=== PATIENT | male | born 1985 | race American Indian/Alaskan Native ===

== ENCOUNTER 2016-11-26 19:26 | Inpatient (IN) | payer MEDICARE, OTHER ==
--- NOTE | 2016-11-26 19:48 | C.PDOC ---
History Of Present Illness 31 y/o male presents to the ED with complains of depression and SI. Pt states he wants to jump in water and kill himself. PMHx schizophrenia. Denies any physical complaints at this time. Time Seen by Provider: 11/26/16 19:48 Chief Complaint (Nursing): Psychiatric Evaluation History Per: Patient History/Exam Limitations: no limitations Onset/Duration Of Symptoms: Days Current Symptoms Are (Timing): Still Present Suicide/Self Injury Attempted (Context): None Modifying Factor(s): None Severity: Moderate Associated Symptoms: Depression, Suicidal Thoughts Involuntary Hold By: None Recent travel outside of the [place]: No Additional History Per: Patient Past Medical History Reviewed: Historical Data, Nursing Documentation, Vital Signs Vital Signs: Last Vital Signs Temp 97.5 F L 11/26/16 19:33 Pulse 70 11/26/16 19:33 Resp 14 11/26/16 19:33 BP 118/77 11/26/16 19:33 Pulse Ox 99 11/26/16 19:59 - Medical History PMH: Anxiety, Bipolar Disorder, Depression, Schizophrenia - [facility] Procedures GROUP PSYCHOTHERAPY (05/06/16) INDIVIDUAL PSYCHOTHERAPY, SUPPORTIVE (06/10/16) MEDICATION MANAGEMENT (05/06/16) Family History: States: Unknown Family Hx - Social History Hx Alcohol Use: No Hx Substance Use: No - Immunization History Hx Tetanus Toxoid Vaccination: No Hx Influenza Vaccination: No Hx Pneumococcal Vaccination: No Review Of Systems Constitutional: Negative for: Fever Eyes: Negative for: Redness Cardiovascular: Negative for: Chest Pain Respiratory: Negative for: Shortness of Breath Gastrointestinal: Negative for: Vomiting Genitourinary: Negative for: Rash Musculoskeletal: Negative for: Back Pain Skin: Negative for: Rash Neurological: Negative for: Weakness, Headache Psych: Positive for: Depression, Suicidal ideation Physical Exam - Physical Exam Appears: Non-toxic, No Acute Distress Skin: Warm, Dry, No Rash Head: Normacephalic Eye(s): bilateral: Normal Inspection Neck: Supple Chest: Symmetrical Cardiovascular: Rhythm Regular Respiratory: No Rales, No Rhonchi, No Wheezing Gastrointestinal/Abdominal: Soft, No Tenderness, No Distention Back: Normal Inspection Extremity: Normal ROM Extremity: Bilateral: Atraumatic, Normal Color And Temperature, Normal ROM Neurological/Psych: Oriented x3, Normal Speech, Normal Cognition Gait: Steady ED Course And Treatment - Laboratory Results Result Diagrams: 11/26/16 20:03 11/26/16 20:03 O2 Sat by Pulse Oximetry: 99 (room air) Pulse Ox Interpretation: Normal Disposition Discussed With Dr.: Alma Palma Comment: accepted the pt on his service and took over the care at 9PM Counseled Patient/Family Regarding: Studies Performed, Diagnosis - Disposition Disposition: HOSPITALIZED Disposition Time: 19:48 Condition: - Clinical Impression Clinical Impression: Schizophrenia - Scribe Statement The provider has reviewed the documentation as recorded by the Ankita Rojas Provider Attestation: All medical record entries made by the Ankita were at my direction and personally dictated by me. I have reviewed the chart and agree that the record accurately reflects my personal performance of the history, physical exam, medical decision making, and the department course for this patient. I have also personally directed, reviewed, and agree with the discharge instructions and disposition. Decision To Admit - Pt Status Changed To: Hospital Disposition Of: Inpatient - Admit Certification Admit to Inpatient:: After my assessment, the patient will require hospitalization for at least two midnights. This is because of the severity of symptoms shown, intensity of services needed, and/or the medical risk in this patient being treated as an outpatient. - InPatient: Physician Admission Certification: I certify that this patient requires 2 or more midnights of care for the following reason:: After my assessment, the patient will require hospitalization for at least two midnights. This is because of the severity of symptoms shown, intensity of services needed, and/or the medical risk in this patient being treated as an outpatient. - . Bed Request Type: Psychiatry Admitting Physician: Alma Palma Patient Diagnosis: Schizophrenia
[2016-11-26 20:13] LABS: BASO % 0.2 % (0.0-2.0); EOS % 0.5 % (0.0-4.0); HEMATOCRIT 41.5 % (35.0-51.0); LYMPH # 1.3 K/uL (1.0-4.3); LYMPH % 13.9 % (20.0-40.0); MEAN CORPUSCULAR HEMOGLOBIN 30.1 pg (27.0-31.0); MEAN CORPUSCULAR HGB CONC 34.2 g/dL (33.0-37.0); MONO # 0.8 K/uL (0.0-0.8); MONO % 8.4 % (0.0-10.0); RED CELL DISTRIBUTION WIDTH 13.6 % (11.5-14.5); WHITE BLOOD COUNT 9.6 K/uL (4.8-10.8)
[2016-11-26 20:17] LABS: RBC URINE 1 /hpf (0-3); URINE BILIRUBIN NEGATIVE (NEGATIVE); URINE BLOOD NEGATIVE (NEGATIVE); URINE COLOR Yellow (YELLOW); URINE GLUCOSE (UA) NORMAL (Normal); URINE KETONE TRACE mg/dL (NEGATIVE); URINE LEUKOCYTE ESTERASE NEG Leu/uL (Negative); URINE PROTEIN NEGATIVE (NEGATIVE); URINE UROBILINOGEN NORMAL mg/dL (0.2-1.0); WBC URINE 1 /hpf (0-5)
[2016-11-26 20:22] LABS: CHLORIDE 97 mmol/L (98-107); SODIUM 138 mmol/L (132-148)
[2016-11-26 20:23] LABS: POTASSIUM 3.8 mmol/L (3.6-5.2)
[2016-11-26 20:25] LABS: ALB/GLOB RATIO 1.4 (1.0-2.1); ALKALINE PHOSPHATASE 53 U/L (38-126); ALT/SGPT 32 U/L (21-72); AST/SGOT 77 U/L (17-59); BILIRUBIN,TOTAL 0.5 mg/dL (0.2-1.3); BLOOD UREA NITROGEN 13 mg/dL (9-20); CALCIUM 9.6 mg/dl (8.6-10.4); CARBON DIOXIDE 28 mmol/L (22-30); GFR AFRICAN-AMERICAN > 60; GLUCOSE,RANDOM 99 mg/dL (75-110); TOTAL PROTEIN 8.3 g/dL (6.3-8.3)
[2016-11-26 20:26] LABS: ALCOHOL SERUM < 10 mg/dl (0-10)
[2016-11-26 21:33] VITALS: RESP 18
[2016-11-27] MEDS: Bacitracin Ointment 30 GM TUBE TOP SCH (13:28)
[2016-11-27] MEDS ORDERED: Bacitracin 500 Units/gm Oint Foilpak UD TOP SCH (14:00)
--- NOTE | 2016-11-27 15:21 | PCM.PSYCH ---
Initial Psychiatric Evaluation - Initial Psychiatric Evaluation Legal Status: Capacity Chief Complaint (in patient's own words): "I need to go back to work" History of Present Illness and Precipitating Events: Pt is a 31 y/o Male. He is single with no children and lives with his mother. 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 Pt has been to [address] in the last year for schizoaffective disorder-bipolar with most recent discharge in August. He was referred to [facility] [place] for treatment. Pt says he came to the emergency room yesterday because he could not sleep. He had used cocaine. He says his mom is kicking him out because he is almost [age] and he wants to work to earn money to have his own place. He also says his mom is not home very much and moving to [place]. Pt wants to leave tomorrow because he is afraid of losing his job. The importance of staying through the weekend was discussed and he agreed. Pt is poor historian and tangential. He is fixated work and also on needing to get an HIV test. Pt does not take medications or see a psychiatrist. Pt also smokes marijuana and two packs a day of cigarettes but denies using heroin, or other drugs. Pt denies feeling paranoid, seeing things or hearing voices. Pt denies S/I. Pt has a burn on his lip that he says is from when he smoked. PMH: denies FamPsychHx: denies Current Medications: Active Medications Generic Name Dose Route Start Last Admin Trade Name Freq PRN Reason Stop Dose Admin Acetaminophen 650 mg 11/26/16 22:39 Tylenol 325mg Tab PO Q6 PRN Fever >100.4 F Bacitracin 0 gm 11/27/16 14:00 11/27/16 13:28 Bacitracin TOP 1 applic TID LUBNA Administration Benztropine Mesylate 1 mg 11/26/16 22:46 Cogentin PO Q6 PRN Allergy symptoms Diphenhydramine HCl 50 mg 11/27/16 11:26 Benadryl PO Q6 PRN anxiety Divalproex Sodium 500 mg 11/27/16 18:[address] PO BID LUBNA Haloperidol 5 mg 11/26/16 21:44 Haldol PO Q6 PRN Agitation Lorazepam 1 mg 11/27/16 11:26 Ativan PO Q8H PRN Severe Anxiety Nicotine 1 patch 11/27/16 11:30 11/27/16 13:27 Nicoderm Cq TD 1 patch DAILY LUBNA Administration Trazodone HCl 50 mg 11/26/16 22:45 Desyrel PO HS LUBNA Ziprasidone 40 mg 11/27/16 18:00 Geodon PO BID LUBNA Past Psychiatric History - Past Psychiatric History Pertinent Medical Hx (Current Medical&Sleep Prob, Allergies): Allergies Allergy/AdvReac Type Severity Reaction Status Date / Time raw potato skins Allergy ANGIOEDEMA Uncoded 11/26/16 19:37 Review of Systems - Psychiatric Psychiatric: Anxiety. absent: Auditory Hallucinations, Hallucinations, Homicidal Ideation, Paranoia, Suicidal Ideation, Visual Hallucinations Mental Status Examination - Personal Presentation Personal Presentation: Looks stated age - Affect Affect: Constricted, Flat - Motor Activity Motor Activity: Calm - Reliability in Providing Information Reliability in Providing Information: Poor, due to altered mood - Speech Speech: Irrelevant, Tangential - Mood Mood: Anxious - Formal Thought Process Formal Thought Process: Loosening of associations - Obsessions/Compulsions Obsessions: No Compulsions: No - Cognitive Functions Orientation: Person, Place, Situation, Time Sensorium: Alert Attention/Concentration: Easily distracted Estimate of Intelligence: Below average Judgement: Imparied, as evidence by: Lack of insight into illness Memory: Remote impaired as evidenced by: Inability to recall sig life events, Remote impaired as evidenced by: Inability to recall historical events DSM 5 DX - DSM 5 DSM 5 Diagnosis: Schizoaffective disorder - bipolar type r/o Substance induced psychosis Cocaine Use Disorder Cannabis Use Disorder Tobacco Use Disorder - Recommended/Plan of Treatment Treatment Recommendations and Plan of Treatment: Schizoaffective disorder - bipolar type -start Depakote 50mg PO BID -Haldol PRN -start Ziprasidone 40mg bid -Trazodone for insomnia -CBT -attend groups and activities -Indiv/group therapy Cocaine Use Disorder -PR and CBT for abstinence and relapse prevention -attend groups and activities -support and psychoeducation -indiv/group therapy Cannabis Use Disorder -PR and CBT for abstinence and relapse prevention -attend groups and activities -indiv/group therapy -support and psychoeducation Tobacco Use Disorder -start nicotine replacement therapy -PR for abstinence 33 minutes
[2016-11-27] MEDS: Divalproex 500 mg DR Tab PO SCH (18:08)
[2016-11-28] MEDS: Divalproex 500 mg DR Tab PO SCH ×2 (09:41→18:06)
[2016-11-28] MEDS: Bacitracin Ointment 30 GM TUBE TOP SCH ×3 (09:41→21:05)
[2016-11-29 07:29] VITALS: TEMP 97.6; O2SAT 99
[2016-11-29] MEDS: Bacitracin Ointment 30 GM TUBE TOP SCH ×4 (09:29→20:23)
[2016-11-29] MEDS: Divalproex 500 mg DR Tab PO SCH ×2 (09:30→17:13)
--- NOTE | 2016-11-29 12:48 | PCM.PYCHPN ---
Psychiatric Progress Note - Psychiatric Progress Note Patient seen today, length of contact: 15 min Patient Chief Complaint: I am feeling much better Problems Identified/Issues Discussed: Patient seen and evaluated, chart reviewed and discussed with the nurse. Patient appears more organized than before. As per the staff, he remained calm and cooperative and denies any auditory or visual hallucinations. He is taking medication and denies any side effects. Supportive therapy and psychoeducation were given. Medication Change: No Medical Record Reviewed: Yes Mental Status Examination - Cognitive Function Orientation: Person, Place, Situation, Time Memory: Intact Attention: WNL Concentration: WNL Association: Loose Fund of Knowledge: WNL - Mood Mood: Anxious - Affect Affect: Constricted, Flat - Speech Speech: Soft - Formal Thought Process Formal Thought Process: Loosening of associations - Suicidal Ideation Suicidal Ideation: No - Homicidal Ideation Homicidal Ideation: No Goal/Treatment Plan - Goal/Treatment Plan Need for Continued Stay: Discharge may exacerbated symptoms, Severe functional impairment Progress Toward Problem(s) and Goals/Treatment Plan: Schizoaffective disorder - bipolar type -Depakote 500 mg PO BID -Ziprasidone 40mg bid -Trazodone for insomnia -CBT -attend groups and activities -Indiv/group therapy Cocaine Use Disorder -PR and CBT for abstinence and relapse prevention -attend groups and activities -support and psychoeducation -indiv/group therapy Cannabis Use Disorder -PR and CBT for abstinence and relapse prevention -attend groups and activities -indiv/group therapy -support and psychoeducation Tobacco Use Disorder -start nicotine replacement therapy -PR for abstinence - Smoking Cessation Smoking Cessation Initiated: No
--- NOTE | 2016-11-29 12:49 | PCM.PYCHPN ---
Psychiatric Progress Note - Psychiatric Progress Note Patient seen today, length of contact: 15 min Patient Chief Complaint: I want to leave. Problems Identified/Issues Discussed: Patient seen and evaluated, chart reviewed and discussed with the nurse. Patient appeared more organized and less internally preoccupied than before. He appears less suspicious, and less paranoid. He is taking medication and denies any side effects. Supportive therapy and psychoeducation were given. Medication Change: No Medical Record Reviewed: Yes Mental Status Examination - Cognitive Function Orientation: Person, Place, Situation, Time Memory: Intact Attention: WNL Concentration: Poor Association: WNL Fund of Knowledge: Poor - Mood Mood: Anxious - Affect Affect: Broad - Speech Speech: Soft - Formal Thought Process Formal Thought Process: Delusions, Paranoia, Loosening of associations - Suicidal Ideation Suicidal Ideation: No - Homicidal Ideation Homicidal Ideation: No Goal/Treatment Plan - Goal/Treatment Plan Need for Continued Stay: Discharge may exacerbated symptoms, Severe functional impairment Progress Toward Problem(s) and Goals/Treatment Plan: Schizoaffective disorder - bipolar type -Depakote 500mg PO BID -Haldol PRN -Ziprasidone 40mg bid -Trazodone for insomnia -CBT -attend groups and activities -Indiv/group therapy Cocaine Use Disorder -MT and CBT for abstinence and relapse prevention -attend groups and activities -support and psychoeducation -indiv/group therapy Cannabis Use Disorder -MT and CBT for abstinence and relapse prevention -attend groups and activities -indiv/group therapy -support and psychoeducation Tobacco Use Disorder -start nicotine replacement therapy -MT for abstinence - Smoking Cessation Smoking Cessation Initiated: No
[2016-11-29 18:09] VITALS: BP 123/81; PULSE 105
[2016-11-30] MEDS: Divalproex 500 mg DR Tab PO SCH (09:01)
[2016-11-30] MEDS: Bacitracin Ointment 30 GM TUBE TOP SCH ×2 (09:01→13:02)
--- NOTE | 2016-11-30 13:35 | PCM.PYCHDC ---
Mental Status Examination - Mental Status Examination Orientation: Person, Place, Situation, Time Memory: Intact Mood: Neutral Affect: Constricted Speech: Soft Attention: WNL Concentration: WNL Association: WNL Fund of Knowledge: WNL Formal Thought Process: No Impairment Description of patient's judgement and insight: good, fair Psychotic Thoughts and Behaviors: denies any AVH Suicidal Ideation: No Current Homicidal Ideation?: No Discharge Summary - Discharge Note Reason for Hospitalization: Pt is a 31 y/o Male. He is single with no children and lives with his mother. Pt is currently working different jobs in [employer] and [employer] work. Pt has been to [address] in the last year for schizoaffective disorder-bipolar with most recent discharge in August. He was referred to [facility] [place] for treatment. Pt says he came to the emergency room yesterday because he could not sleep. He had used cocaine. He says his mom is kicking him out because he is almost [age] and he wants to work to earn money to have his own place. He also says his mom is not home very much and moving to [place]. Pt wants to leave tomorrow because he is afraid of losing his job. The importance of staying through the weekend was discussed and he agreed. Pt is poor historian and tangential. He is fixated work and also on needing to get an HIV test. Pt does not take medications or see a psychiatrist. Pt also smokes marijuana and two packs a day of cigarettes but denies using heroin, or other drugs. Pt denies feeling paranoid, seeing things or hearing voices. Pt denies S/I. Pt has a burn on his lip that he says is from when he smoked. PMH: denies FamPsychHx: denies Consultations:: List each consultation separately and include: 1. Reason for request. 2. Findings. 3. Follow-up Summary of Hospital Course include:: 1. Description of specific treatment plan utilized for patients during their course of treatmen. 2. Summarize the time- course for resolution of acute symptoms and/or regressed behaviors. 3. Describe issues identified and worked on during hospitalization. 4. Describe medication utilized. 5. Describe medical problems identified and treated. 6. Reassessment of suicide risk Summary of Hospital Course: During the course of his stay, patient (pt) started progressively improving and he no longer remained irritable, depressed, suicidal and paranoid. His mood and paranoia were improved and he started attending groups and meetings and started socializing. He started taking care of his hygiene and ADLs, and he no longer remained disheveled and malodorous. Patient denied any feelings of hopelessness , helplessness, and worthlessness, denied any problem with the sleep or appetite , denied suicidal ideation or homicidal ideation. Pt denied any auditory or visual hallucinations. Some changes were made in his current medications and patient was discharged on following medications. He tolerated these medications very well and denied any side effects. - Final Diagnosis (DSM 5) Condition upon Discharge: STABLE DSM 5: Schizoaffective disorder - bipolar type r/o Substance induced psychosis Cocaine Use Disorder Cannabis Use Disorder Tobacco Use Disorder Disposition: HOME/ ROUTINE Follow-up Treatment Plan: Education: Pt was educated and counseled about the risks and benefits of taking and not taking medications. Pt was educated and counseled about the risks of drinking and abusing drugs. Pt was educated and counseled to go to the ER or call 911 if pt develop suicidal ideation or homicidal ideation, worsening of symptoms or severe side effects of the meds. Prescriptions/Medication Reconciliation: Benztropine [Cogentin] 1 mg PO BID PRN #60 tab PRN Reason: Allergy Symptoms Divalproex [Depakote DR] 500 mg PO BID #60 tcp traZODone [Desyrel] 100 mg PO HS #30 tab Ziprasidone [Geodon] 40 mg PO BID #60 cap - Smoking Cessation Smoking Cessation Medication prescribed: No - Antipsychotic Medications Pt discharged on 2 or more routine antipsychotic medications: No
== END 2016-11-30 14:10 | disposition home or self-care (01) | DRG 885 ==
LOC: C.ER 19:26 → C.5E 20:59
PROVIDERS: ADMIT Psychiatry & Neurology Psychiatry; ATTEND Psychiatry & Neurology Psychiatry
PROC: GZ3ZZZZ Medication Management (ICD-10-PCS; principal; 2016-11-26)
PROC: HZ59ZZZ Individual Psychotherapy for Substance Abuse Treatment, Supportive (ICD-10-PCS; 2016-11-26)
PROC: GZHZZZZ Group Psychotherapy (ICD-10-PCS; 2016-11-26)
PROC: GZ56ZZZ Individual Psychotherapy, Supportive (ICD-10-PCS; 2016-11-26)
PROC: HZ90ZZZ Pharmacotherapy for Substance Abuse Treatment, Nicotine Replacement (ICD-10-PCS; 2016-11-26)
DX: F25.0 Schizoaffective disorder, bipolar type (principal); F14.159 Cocaine abuse with cocaine-induced psychotic disorder, unspecified; F17.210 Nicotine dependence, cigarettes, uncomplicated; F12.10 Cannabis abuse, uncomplicated

== ENCOUNTER 2017-08-07 11:18 | Inpatient (IN) | payer MEDICARE ==
--- NOTE | 2017-08-07 11:40 | C.PDOC ---
History Of Present Illness Patient is a 32 y/o male, with a Hx of schizoaffective disorder, who presents to the ED with a complaint of SI and expressed suicidal plan. Patient admits to experiencing running thoughts and to being off his medication for almost a month due to not being able to afford. Patient notes "feeling crazy" and reports having problems with family, admitting arguing with his mother. Patient has a Hx of prior suicide attempts. Denies drug use. No other physical complaints at this time. Time Seen by Provider: 08/07/17 11:33 Chief Complaint (Nursing): Psychiatric Evaluation History Per: Patient History/Exam Limitations: no limitations Onset/Duration Of Symptoms: Days Current Symptoms Are (Timing): Still Present Suicide/Self Injury Attempted (Context): None Associated Symptoms: Suicidal Thoughts, Suicidal Plan Recent travel outside of the [place]: No Past Medical History Reviewed: Historical Data, Nursing Documentation, Vital Signs Vital Signs: Last Vital Signs Temp 97.6 F 08/07/17 16:17 Pulse 61 08/07/17 16:17 Resp 18 08/07/17 16:17 BP 116/80 08/07/17 16:17 Pulse Ox 100 08/07/17 19:12 - Medical History PMH: Anxiety, Bipolar Disorder, Depression, Schizophrenia Denies: Diabetes, Hepatitis, HIV, HTN, Chronic Kidney Disease, Seizures, Sexually Transmitted Disease - [facility] Procedures GROUP PSYCHOTHERAPY (11/26/16) INDIV PSYCHOTHERAPY FOR SUBSTANCE ABUSE TREATMENT, SUPPORT (11/26/16) INDIVIDUAL PSYCHOTHERAPY, SUPPORTIVE (11/26/16) MEDICATION MANAGEMENT (11/26/16) PHARMACOTHERAPY FOR SUBSTANCE ABUSE, NICOTINE REPLACE (11/26/16) Family History: States: Unknown Family Hx - Social History Hx Alcohol Use: Yes Hx Substance Use: Yes - Immunization History Hx Tetanus Toxoid Vaccination: No Hx Influenza Vaccination: No Hx Pneumococcal Vaccination: No Review Of Systems Psych: Positive for: Suicidal ideation, Other (suicidal plan) Physical Exam - Physical Exam Appears: Well, Non-toxic, No Acute Distress, Agitated, Other (thin habitus) Skin: Normal Color, Warm, Dry Head: Atraumatic, Normacephalic Eye(s): bilateral: Normal Inspection, PERRL, EOMI Nose: Normal Oral Mucosa: Moist Neck: Normal ROM Chest: Symmetrical Cardiovascular: Rhythm Regular, No Murmur Respiratory: Normal Breath Sounds, No Rales, No Rhonchi, No Wheezing Extremity: Bilateral: Atraumatic, Normal Color And Temperature, Normal ROM Neurological/Psych: Oriented x3, Normal Speech Gait: Steady ED Course And Treatment - Laboratory Results Result Diagrams: 08/07/17 16:37 08/07/17 12:17 Lab Interpretation: No Changes Compared To Prior Results ECG: Interpreted By Me, Viewed By Me ECG Rhythm: Sinus Rhythm ECG Interpretation: Normal Rate From EC (bpm) O2 Sat by Pulse Oximetry: 100 (room air) Pulse Ox Interpretation: Normal - Radiology CXR: Interpreted by Me, Viewed By Me CXR Interpretation: Yes: No Acute Disease Progress Note: CXR interpretation: HISTORY: for preadmission, screening. COMPARISON: None available. TECHNIQUE: Chest, one view. FINDINGS: LUNGS: No focal consolidation. Please note that chest x-ray has limited sensitivity for the detection of pulmonary masses. PLEURA: No significant pleural effusion identified. No definite pneumothorax . CARDIOVASCULAR: Heart size appears within normal limits. OSSEOUS STRUCTURES: No acute osseous abnormality identified. VISUALIZED UPPER ABDOMEN: Unremarkable. OTHER FINDINGS: None. IMPRESSION: No focal consolidation, significant pleural effusion, or definite pneumothorax identified. Medical Decision Making Medical Decision Making: Impression: schizo with suicidal thoughts Plan: * Blood work * UA * Crisis notified Patient is currently 1:1. Prior records reviewed: Patient has history of schizoaffective disorder. Patient last seen and admitted 11/26/16 Labs ordered and reviewed. In my clinical judgment patient is medically cleared and stable for psychiatric admission. 1310 PES worker Angelika, states case was discussed with Dr Palma who wants [facility] screening. Will order EKG and CXR for further medical clearance. EKG and CXR obtained and reviewed Patient to be observed in ED, pending [facility] Screening 183 still no ETA for screener Patient remains alert, calm and cooperative in ED 1900 Case signed out to MELODY Waters Disposition - Disposition Disposition Time: 19:33 Condition: STABLE - POA Present On Arrival: None - Clinical Impression Clinical Impression: Schizoaffective disorder - Scribe Statement The provider has reviewed the documentation as recorded by the Scribe Nery Catherine All medical record entries made by the Scribe were at my direction and personally dictated by me. I have reviewed the chart and agree that the record accurately reflects my personal performance of the history, physical exam, medical decision making, and the department course for this patient. I have also personally directed, reviewed, and agree with the discharge instructions and disposition. Physician Patient Turnover Patient Signed Over To: Mitra Waters Handoff Comments: Pending [facility] screeners
[2017-08-07 12:26] LABS: BASO % 0.7 % (0.0-2.0); EOS % 1.2 % (0.0-4.0); LYMPH # 1.3 K/uL (1.0-4.3); LYMPH % 42.8 % (20.0-40.0); MEAN CELL VOLUME 88.5 fL (80.0-94.0); MEAN CORPUSCULAR HEMOGLOBIN 31.3 pg (27.0-31.0); MEAN CORPUSCULAR HGB CONC 35.3 g/dL (33.0-37.0); MEAN PLATELET VOLUME 7.7 fL (7.2-11.7); MONO # 0.2 K/uL (0.0-0.8); MONO % 6.2 % (0.0-10.0); NEUT # 1.5 K/uL (1.8-7.0); NEUT % 49.1 % (50.0-75.0); NRBC % 0.1 % (0.0-2.0); RBC 3.85 Mil/uL (4.40-5.90); RED CELL DISTRIBUTION WIDTH 13.1 % (11.5-14.5)
[2017-08-07 12:27] LABS: URINE BILIRUBIN NEGATIVE (NEGATIVE); URINE BLOOD NEGATIVE (NEGATIVE); URINE CLARITY Clear (Clear); URINE COLOR Yellow (YELLOW); URINE GLUCOSE (UA) NORMAL (Normal); URINE LEUKOCYTE ESTERASE NEG Leu/uL (Negative); URINE NITRATE NEGATIVE (NEGATIVE); URINE PROTEIN NEGATIVE (NEGATIVE); URINE UROBILINOGEN NORMAL mg/dL (0.2-1.0)
[2017-08-07 12:40] LABS: ALB/GLOB RATIO 1.3 (1.0-2.1); ALBUMIN 3.8 g/dL (3.5-5.0); ALT/SGPT 10 U/L (21-72); AST/SGOT 24 U/L (17-59); BLOOD UREA NITROGEN 6 mg/dL (9-20); CALCIUM 8.7 mg/dl (8.6-10.4); GFR AFRICAN-AMERICAN > 60; GFR NON-AFRICAN AMERICAN > 60
[2017-08-07 12:46] LABS: ACETAMINOPHEN < 10.0 ug/mL (10.0-30.0); SALICYLATE < 1.0 mg/dL 1
[2017-08-07 13:09] LABS: BARBITURATES, UR NEGATIVE (NEGATIVE); BENZODIAZEPINES, UR NEGATIVE (NEGATIVE); OPIATES, UR NEGATIVE (NEGATIVE); PHENCYCLIDINE, UR NEGATIVE (NEGATIVE)
--- NOTE | 2017-08-07 13:45 | RAD ---
HISTORY: for preadmission, screening COMPARISON: None available. TECHNIQUE: Chest, one view. FINDINGS: LUNGS: No focal consolidation. Please note that chest x-ray has limited sensitivity for the detection of pulmonary masses. PLEURA: No significant pleural effusion identified. No definite pneumothorax . CARDIOVASCULAR: Heart size appears within normal limits. OSSEOUS STRUCTURES: No acute osseous abnormality identified. VISUALIZED UPPER ABDOMEN: Unremarkable. OTHER FINDINGS: None. IMPRESSION: No focal consolidation, significant pleural effusion, or definite pneumothorax identified.
[2017-08-07 16:39] LABS: HEMOGLOBIN 12.1 g/dL (12.0-18.0); MEAN CELL VOLUME 88.6 fL (80.0-94.0); MEAN PLATELET VOLUME 7.6 fL (7.2-11.7); RBC 3.91 Mil/uL (4.40-5.90); RED CELL DISTRIBUTION WIDTH 13.3 % (11.5-14.5); WHITE BLOOD COUNT 3.3 K/uL (4.8-10.8)
[2017-08-07 19:47] VITALS: O2SAT 98
[2017-08-08] MEDS: Divalproex 500 mg DR Tab PO SCH ×2 (00:21→09:04)
--- NOTE | 2017-08-08 01:39 | PCM.BM ---
<Mellisa Arriola - Last Filed: 08/08/17 01:36> Treatment Plan Problems - Problems identified on initial assessmt Aggression Date Initiated: 08/08/17 Time Initiated: 01:38 Assessment reference: NA Status: Active Comment: Easily provoked per Mother [employer] Auditory Hallucinations Date Initiated: 08/08/17 Time Initiated: 01:38 Assessment reference: NA Status: Active Suicial ideations Date Initiated: 08/08/17 Time Initiated: 01:39 Assessment reference: NA Status: Active <Ayleen Floyd - Last Filed: 08/10/17 10:07> Family Contact Family involvement: Family/SO is involved Family contact: Patient declines to allow family contact at present - Goals for Treatment Patient goals for treatment: "I want to go home." Discharge/Continuing Care - Education Needs Education Needs: Patient Medication, Patient Coping Skills - Discharge Discharge Criteria: Tolerates medication w/o severe side effects, Reduction of target symptoms Discharge to:: Home, With Family - Treatment Team Participation Discussed with Family/SO: No Was Patient/Family/SO present at Treatment Team Meeting: Yes
[2017-08-08 09:29] VITALS: RESP 20; TEMP 97.9
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
[2017-08-08] MEDS ORDERED: Haloperidol Decanoate 100 mg/ml Inj IM ONE (15:00)
[2017-08-08] MEDS: Divalproex 250 mg DR Tab PO SCH (21:58)
[2017-08-09] MEDS: Divalproex 500 mg DR Tab PO SCH (09:17)
--- NOTE | 2017-08-09 13:42 | PCM.PYCHPN ---
Psychiatric Progress Note - Psychiatric Progress Note Patient seen today, length of contact: 15 min Patient Chief Complaint: I'm feeling much better Problems Identified/Issues Discussed: Patient seen and evaluated, chart reviewed and discussed with the nurse. Patient appeared more organized and less internally preoccupied. Patient reports improvement in her irritability and agitation. Reports improvement in his mood and anxiety and he started going to resume. However he appears less paranoid than yesterday. He is taking medications and denied any side effects. However he signed a 48 hours to be discharged on Thursday. He is improving but needs more time for stabilization. Patient received Haldol Decanoate shot yesterday and denies any complications. Supportive therapy and psychoeducation were given. Medication Change: Yes (Increase Haldol, increase Depakote) Medical Record Reviewed: Yes Mental Status Examination - Cognitive Function Orientation: Person, Place, Situation, Time Memory: Intact Attention: WNL Concentration: Poor Association: Loose Fund of Knowledge: WNL - Mood Mood: Anxious - Affect Affect: Broad - Formal Thought Process Formal Thought Process: Delusions, Paranoia, Loosening of associations - Suicidal Ideation Suicidal Ideation: No - Homicidal Ideation Homicidal Ideation: No Goal/Treatment Plan - Goal/Treatment Plan Need for Continued Stay: Severe depression anxiety, Severe functional impairment Progress Toward Problem(s) and Goals/Treatment Plan: Schizoaffective disorder bipolar type CBT Psychoeducation Supportive therapy, group therapy, individual therapy Haldol 10 mg by mouth twice a day Cogentin 1 mg by mouth twice a day Depakote 500 mg by mouth twice a day Trazodone 100 mg by mouth daily at bedtime Klonopin 1 mg PO QID Haldol Decanoate 100 I/M, next due 09/05/17 - Smoking Cessation Smoking Cessation Initiated: No
[2017-08-09 16:40] VITALS: BP 124/77; PULSE 76
[2017-08-09] MEDS: Divalproex 250 mg DR Tab PO SCH (21:40)
--- NOTE | 2017-08-10 09:15 | CARD ---
APPROVED REPORT EKG Measurement Heart [id number] <Conclusion> Normal sinus rhythm Normal ECG
[2017-08-10] MEDS: Divalproex 500 mg DR Tab PO SCH (09:46)
[2017-08-10] MEDS ORDERED: Pneumococcal 23-Valent Vaccine IM ONE (10:00)
[2017-08-10] MEDS ORDERED: Influenza Vaccine 60 mcg/0.5 mL SYR (4YR UP) IM ONE (10:00)
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
== END 2017-08-10 11:42 | disposition left against medical advice (07) | DRG 885 ==
LOC: C.ER 11:18 → C.9E 23:01 → C.5E 23:19
PROVIDERS: ADMIT Psychiatry & Neurology Psychiatry; ATTEND Psychiatry & Neurology Psychiatry
PROC: GZ3ZZZZ Medication Management (ICD-10-PCS; principal; 2017-08-07)
PROC: GZHZZZZ Group Psychotherapy (ICD-10-PCS; 2017-08-07)
PROC: GZ56ZZZ Individual Psychotherapy, Supportive (ICD-10-PCS; 2017-08-07)
DX: F25.0 Schizoaffective disorder, bipolar type (principal); R45.851 Suicidal ideations; F22 Delusional disorders; F41.9 Anxiety disorder, unspecified; Z79.899 Other long term (current) drug therapy; Z91.14 Patient's other noncompliance with medication regimen; Z91.19 Patient's noncompliance with other medical treatment and regimen; Z91.5 Personal history of self-harm

== ENCOUNTER 2017-11-02 00:34 | Emergency (ER) | payer MEDICARE ==
--- NOTE | 2017-11-02 01:14 | C.PDOC ---
History Of Present Illness 32 y/o male presents to the ED for psychiatric evaluation. Patient reports having feelings of depression that began today, with suicidal thoughts regarding jumping off a bridge. States he has no actual plan. Patient offers no physical complaints. Time Seen by Provider: 11/02/17 01:14 Chief Complaint (Nursing): Psychiatric Evaluation History Per: Patient History/Exam Limitations: no limitations Onset/Duration Of Symptoms: Days Current Symptoms Are (Timing): Still Present Suicide/Self Injury Attempted (Context): None Modifying Factor(s): None Severity: None Pain Scale Rating Of: 0 Associated Symptoms: Depression, Suicidal Thoughts Involuntary Hold By: None Recent travel outside of the [place]: No Past Medical History Reviewed: Historical Data, Nursing Documentation, Vital Signs Vital Signs: Last Vital Signs Temp 97.9 F 11/02/17 05:00 Pulse 61 11/02/17 05:00 Resp 20 11/02/17 05:00 BP 108/67 11/02/17 05:00 Pulse Ox 98 11/02/17 05:00 - Medical History PMH: Anxiety, Bipolar Disorder, Depression, Schizophrenia Denies: Diabetes, Hepatitis, HIV, HTN, Chronic Kidney Disease (Denies), Seizures, Sexually Transmitted Disease Surgical History: No Surg Hx - [facility] Procedures GROUP PSYCHOTHERAPY (08/07/17) INDIV PSYCHOTHERAPY FOR SUBSTANCE ABUSE TREATMENT, SUPPORT (11/26/16) INDIVIDUAL PSYCHOTHERAPY, SUPPORTIVE (08/07/17) MEDICATION MANAGEMENT (08/07/17) PHARMACOTHERAPY FOR SUBSTANCE ABUSE, NICOTINE REPLACE (11/26/16) Family History: States: Unknown Family Hx - Social History Hx Tobacco Use: Yes Hx Alcohol Use: No Hx Substance Use: Yes - Immunization History Hx Tetanus Toxoid Vaccination: No Hx Influenza Vaccination: No Hx Pneumococcal Vaccination: No Review Of Systems Constitutional: Negative for: Fever Respiratory: Negative for: Shortness of Breath Gastrointestinal: Negative for: Abdominal Pain Psych: Positive for: Depression, Suicidal ideation. Negative for: Other ( suicidal plan) Physical Exam - Physical Exam Appears: Non-toxic, No Acute Distress Skin: Warm, Dry Head: Normacephalic Eye(s): bilateral: Normal Inspection Oral Mucosa: Moist Neck: Supple Chest: Symmetrical Cardiovascular: Rhythm Regular Respiratory: No Rales, No Rhonchi, No Wheezing Gastrointestinal/Abdominal: Soft, No Tenderness, No Distention Extremity: Bilateral: Atraumatic, Normal ROM Neurological/Psych: Oriented x3, Other (depressed affect) Gait: Steady ED Course And Treatment - Laboratory Results Result Diagrams: 11/02/17 02:05 11/02/17 02:05 ECG: Interpreted By Me, Viewed By Me ECG Rhythm: Sinus Rhythm (68), Nonspecific Changes O2 Sat by Pulse Oximetry: 97 (RA) Pulse Ox Interpretation: Normal - Radiology CXR: Interpreted by Me, Viewed By Me CXR Interpretation: No: Infiltrates, Fracture, Pnemothorax Progress Note: Ordered labs, Motrin PO, and potassium chloride PO. Patient placed on 1:1 observation. die out worker to evaluate patient. Pt was accepted in transfer to [facility] by dr li Reevaluation Time: 06:19 Reassessment Condition: Improved Disposition Counseled Patient/Family Regarding: Studies Performed, Diagnosis - Disposition Disposition: OTHER INSTITUTION Disposition Time: 01:14 Condition: FAIR Forms: [employer] (Honduran) - Clinical Impression Clinical Impression: Schizoaffective disorder - Scribe Statement The provider has reviewed the documentation as recorded by the Ankita Maldonado Provider Attestation: All medical record entries made by the Ankita were at my direction and personally dictated by me. I have reviewed the chart and agree that the record accurately reflects my personal performance of the history, physical exam, medical decision making, and the department course for this patient. I have also personally directed, reviewed, and agree with the discharge instructions and disposition.
[2017-11-02 02:11] LABS: BASO % 0.7 % (0.0-2.0); EOS % 0.9 % (0.0-4.0); HEMOGLOBIN 13.4 g/dL (12.0-18.0); LYMPH # 1.5 K/uL (1.0-4.3); LYMPH % 33.5 % (20.0-40.0); MEAN CELL VOLUME 87.2 fL (80.0-94.0); MEAN CORPUSCULAR HEMOGLOBIN 30.2 pg (27.0-31.0); MEAN CORPUSCULAR HGB CONC 34.6 g/dL (33.0-37.0); MONO # 0.4 K/uL (0.0-0.8); MONO % 8.6 % (0.0-10.0); NEUT # 2.6 K/uL (1.8-7.0); NEUT % 56.3 % (50.0-75.0); NRBC % 0.1 % (0.0-2.0); RBC 4.45 Mil/uL (4.40-5.90); RED CELL DISTRIBUTION WIDTH 13.4 % (11.5-14.5); WHITE BLOOD COUNT 4.6 K/uL (4.8-10.8)
[2017-11-02 02:16] LABS: URINE BILIRUBIN NEGATIVE (NEGATIVE); URINE BLOOD NEGATIVE (NEGATIVE); URINE CLARITY Clear (Clear); URINE COLOR Yellow (YELLOW); URINE GLUCOSE (UA) NORMAL (Normal); URINE LEUKOCYTE ESTERASE NEG Leu/uL (Negative); URINE PROTEIN NEGATIVE (NEGATIVE)
[2017-11-02 02:23] LABS: ALB/GLOB RATIO 1.3 (1.0-2.1); ALBUMIN 4.4 g/dL (3.5-5.0); ALT/SGPT 17 U/L (21-72); AST/SGOT 26 U/L (17-59); BLOOD UREA NITROGEN 8 mg/dL (9-20); CALCIUM 9.8 mg/dl (8.6-10.4); GFR AFRICAN-AMERICAN > 60; GFR NON-AFRICAN AMERICAN > 60
[2017-11-02] MEDS ORDERED: Potassium Chloride 10 mEq ER Tab PO STA (02:29)
[2017-11-02] MEDS ORDERED: Potassium Chloride 20 mEq ER Tab PO ONE ×2 (02:36→06:19)
[2017-11-02 02:49] LABS: BARBITURATES, UR NEGATIVE (NEGATIVE); BENZODIAZEPINES, UR NEGATIVE (NEGATIVE); OPIATES, UR NEGATIVE (NEGATIVE); PHENCYCLIDINE, UR NEGATIVE (NEGATIVE)
[2017-11-02] MEDS ORDERED: Potassium Chloride 20 mEq ER Tab PO STA (06:17)
[2017-11-02 07:40] VITALS: BP 100/61; PULSE 65; RESP 18; TEMP 97.3; O2SAT 97
--- NOTE | 2017-11-02 08:31 | RAD ---
Chest x-ray single frontal view History: Psychiatric clearance. Comparison: 08/07/2017 Findings: No focal infiltrate or effusion. Upper lobe granulomatous changes. Heart size within normal limits. Impression: No focal infiltrate or effusion.
--- NOTE | 2017-11-03 17:18 | CARD ---
APPROVED REPORT EKG Measurement Heart [id number] <Conclusion> Normal sinus rhythm Early repolarization Normal ECG
== END 2017-11-02 09:20 | disposition short-term general hospital (02) ==
LOC: C.ER 00:34
DX: F25.9 Schizoaffective disorder, unspecified (principal); E87.6 Hypokalemia
CPT/HCPCS: 71045; 80053; 81001; 85025; 93005; 99285; G0480